=== PATIENT | male | born 1950 | race Caucasian/White ===

== ENCOUNTER 2016-08-25 03:13 | Emergency (ER) | payer OTHER, MEDICARE ==
[~2016-08-25 03:13] MED LIST: ASPI81TA85; ATEN25TA PO; COUM7.5T PO; HYDR25TAB PO; LOVA40TA PO; MAGN250T3 PO; OMEP20CA3 PO; PERC5TAB6 PO; TYLE325T5 PO
[2016-08-25] MEDS ORDERED: cloNIDine 0.2 MG TAB As Ordered ONE (03:51)
[2016-08-25 03:54] LABS: MEAN CORPUSCULAR HGB CONC 34.4 g/dl (32.0-36.5); MEAN CORPUSCULAR VOLUME 87.3 fl (80.0-96.0); RED CELL DISTRIBUTION WIDTH 12.6 % (11.5-14.5); WHITE BLOOD COUNT 5.8 K/mm3 (4.0-10.0)
[2016-08-25 04:03] LABS: INR 1.09
[2016-08-25 04:30] LABS: ANION GAP 8 MEQ/L (8-16); BLOOD UREA NITROGEN 25 MG/DL (7-18); CALCIUM LEVEL 8.8 MG/DL (8.8-10.2); CARBON DIOXIDE LEVEL 28 MEQ/L (21-32); CHLORIDE LEVEL 106 MEQ/L (98-107); CREATININE FOR GFR 1.37 MG/DL (0.70-1.30); GLOMERULAR FILTRATION RATE 55.3 (>49); GLUCOSE, FASTING 144 MG/DL (80-110); POTASSIUM SERUM 3.7 MEQ/L (3.5-5.1); SODIUM LEVEL 142 MEQ/L (136-145)
--- NOTE | 2016-08-25 05:22 | EDDOCDS ---
Nurse's Notes [facility] Name: Jeet aHll Age: 65 yrs Sex: Male : 1950 Arrival Date: 08/25/2016 Time: 03:13 Bed 12 Private MD: Diagnosis: Encounter for examination of blood pressure without abnormal findings;Patient's noncompliance with medical treatment and regimen Presentation: 08/25 03:16 Presenting complaint: Patient states: had blood pressure of 248/108 before leaving the nn1 house. Has had symptoms of indigestion for past few days. Suicide/Homicide risk assessment- the patient denies having any suicidal and/or homicidal ideations and does not present with any other emotional, behavioral or mental health complaints. Status: Patient is not a health services rn or dependent. Transition of care: patient was not received from another setting of care. 03:16 Acuity: ZELDA Level 3 nn1 03:16 Method Of Arrival: Walkin/Carried/Asstd nn1 05:20 Adult Sepsis Screening: The patient does not have new or worsening altered mentation. af2 Patient's respiratory rate is less than 22. Systolic blood pressure is greater than 100. Patient has a qSOFA score of 0- Negative Sepsis Screen. Triage Assessment: 03:24 General: Appears in no apparent distress, comfortable. Pain: Denies pain. The patient nn1 is triaged at the bedside. See Assessment in Nurses Notes section of ED record. Neurological: Level of Consciousness is awake, alert, obeys commands, Oriented to person, place, time. Respiratory: Airway is patent Respiratory effort is even, unlabored, Respiratory pattern is regular, symmetrical. Derm: Skin is pink, warm & dry. Historical: - Allergies: No known drug Allergies; - Home Meds: 1. omeprazole 20 mg Oral cpDR 1 cap once daily 2. atenolol 25 mg Oral tab 1 tab once daily 3. hydrochlorothiazide 25 mg Oral tab 1 tab once daily 4. saw palmetto 160 mg oral cap - PMHx: Hypertension; GERD; Alcoholism; Enlarged prostate; - PSHx: Shoulder Arthroplasty, Left; Shoulder Arthroplasty. Right; Hip Arthroplasty, Right; Knee surgery- Left; Appendectomy; - Social history: Smoking status: Patient states former smoker of tobacco. No barriers to communication noted, The patient speaks fluent Urdu, Speaks appropriately for age. - Family history: Not pertinent. - : The pt / caregiver states he / she is not on anticoagulants. Home medication list is obtained from the patient, pill bottles. - Exposure Risk Screening:: None identified. Screenin:29 Screening information is obtained from the patient. Fall risk: No risks identified. af2 Assistance ADL's: requires no assistance with activities of daily living. Abuse/DV Screen: The patient / caregiver reports he/she is: not in a situation that causes fear, pain or injury. Nutritional screening: No deficits noted. Advance Directives: Currently, there is no health care proxy. home support is adequate. Assessment: 04:30 General: Appears in no apparent distress, comfortable, Behavior is appropriate for age, af2 cooperative. Neurological: Level of Consciousness is awake, alert, obeys commands, Oriented to person, place, time. Cardiovascular: Heart tones S1 S2 present Rhythm is sinus rhythm No ectopy. Respiratory: Airway is patent Respiratory effort is even, unlabored, Breath sounds are clear bilaterally. Derm: Skin is normal. 05:18 General: Appears in no apparent distress, comfortable, Behavior is appropriate for age, af2 cooperative. Neurological: Level of Consciousness is awake, alert, obeys commands, Oriented to person, place, time. Respiratory: Airway is patent Respiratory effort is even, unlabored. Derm: Skin is normal. Vital Signs: 03:22 BP 214 / 94; Pulse 55; Resp 18; Temp 97; Pulse Ox 98% on R/A; Weight 116.12 kg; Height nn1 6 ft. 0 in. (182.88 cm); 04:11 BP 175 / 79 (auto/); af2 04:11 Pulse 50 MON; Resp 18 S; Pulse Ox 96% on R/A; af2 04:26 BP 147 / 65 (auto/); af2 04:26 Pulse 48 MON; Resp 18 S; Pulse Ox 94% on R/A; af2 05:19 BP 131 / 64; Pulse 48; Resp 18; Temp 97.0(TE); Pulse Ox 96% on R/A; af2 03:22 Body Mass Index 34.72 (116.12 kg, 182.88 cm) nn1 Vitals: 05:20 Log In Time: August 25, 2016 at 03:13. af2 ED Course: 03:14 Patient visited by Kym Jarvis. gjb 03:14 Patient moved to Waiting gjb 03:18 Triage Initiated nn1 03:25 Isha Porter RN is Primary Nurse. nn1 03:25 Morgan Thompson DO is Attending Physician. cs11 03:25 Patient visited by Morgan Thompson DO. cs11 03:25 Patient moved to 12 nn1 03:37 EKG done. (by ED staff). Reviewed by Morgan Thompsno DO. ls3 03:38 Patient visited by Gretchen Thompson PCA. ls3 03:50 Pt & Aptt Sent. af2 03:50 Cardiac Marker Panel Sent. af2 03:50 MED Profile Sent. af2 03:50 CBC Sent. af2 04:12 [facility] [place] Payment Agreement was scanned into F[employer] and attached to record. [facility] 04:19 Patient visited by Isha Porter RN. af2 04:29 The patient / caregiver is instructed regarding the plan of care and ED course. Patient af2 has correct armband on for positive identification. Placed in gown. child monitor on. Pulse ox on. NIBP on. 04:30 Patient visited by Isha Porter RN. af2 05:19 Inserted saline lock: 20 gauge in left antecubital area and blood collected. The af2 patient tolerated the procedure well. 05:19 Discontinued IV lock intact, bleeding controlled, pressure dressing applied, No af2 redness/swelling at site. No procedures done that require assistance. Administered Medications: 03:54 Drug: cloNIDine 0.2 mg [clonidine HCl 0.2 mg tablet (1 tabs)] Route: PO; af2 Order Results: Lab Order: CBC; SPEC'M 08/25/16 03:47 Test: WHITE BLOOD COUNT; Value: 5.8; Range: 4.0-10.0; Units: K/mm3; Status: F Test: RED BLOOD COUNT; Value: 4.91; Range: 4.30-6.10; Units: M/mm3; Status: F Test: HEMOGLOBIN; Value: 14.7; Range: 14.0-18.0; Units: g/dl; Status: F Test: HEMATOCRIT; Value: 42.9; Range: 42.0-52.0; Units: %; Status: F Test: MEAN CORPUSCULAR VOLUME; Value: 87.3; Range: 80.0-96.0; Units: fl; Status: F Test: MEAN CORPUSCULAR HEMOGLOBIN; Value: 30.0; Range: 27.0-33.0; Units: pg; Status: F Test: MEAN CORPUSCULAR HGB CONC; Value: 34.4; Range: 32.0-36.5; Units: g/dl; Status: F Test: RED CELL DISTRIBUTION WIDTH; Value: 12.6; Range: 11.5-14.5; Units: %; Status: F Test: PLATELET COUNT, AUTOMATED; Value: 168; Range: 150-450; Units: k/mm3; Status: F Lab Order: MED Profile; SPEC'M 08/25/16 03:47 Test: GLUCOSE, FASTING; Value: 144; Range: 80-110; Abnormal: Above high normal; Units: MG/DL; Status: F Test: BLOOD UREA NITROGEN; Value: 25; Range: 7-18; Abnormal: Above high normal; Units: MG/DL; Status: F Test: CREATININE FOR GFR; Value: 1.37; Range: 0.70-1.30; Abnormal: Above high normal; Units: MG/DL; Status: F Test: GLOMERULAR FILTRATION RATE; Value: 55.3; Range: >49; Status: F Test: SODIUM LEVEL; Value: 142; Range: 136-145; Units: MEQ/L; Status: F Test: POTASSIUM SERUM; Value: 3.7; Range: 3.5-5.1; Units: MEQ/L; Status: F Test: CHLORIDE LEVEL; Value: 106; Range: 98-107; Units: MEQ/L; Status: F Test: CARBON DIOXIDE LEVEL; Value: 28; Range: 21-32; Units: MEQ/L; Status: F Test: ANION GAP; Value: 8; Range: 8-16; Units: MEQ/L; Status: F Test: CALCIUM LEVEL; Value: 8.8; Range: 8.8-10.2; Units: MG/DL; Status: F Test Note: ; Units are mL/min/1.73 m2 Chronic Kidney Disease Staging per NKF: Stage I & II GFR >=60 Normal to Mildly Decreased Stage III GFR 30-59 Moderately Decreased Stage IV GFR 15-29 Severely Decreased Stage V GFR <15 Very Little GFR Left ESRD GFR <15 on NURSE SPECIAL Lab Order: Cardiac Marker Panel; SPEC'M 08/25/16 03:47 Test: CPK CREATINE PHOSPHOKINASE; Value: 289; Range: 39-308; Units: U/L; Status: F Test: CK-MB VALUE MASS; Value: 3.2; Range: 0.0-3.6; Units: NG/ML; Status: F Test: MB/CK RELATIVE INDEX; Value: 1.10; Range: < OR =4; Status: F Test: TROPONIN I; Value: < 0.02; Range: < 0.10; Units: NG/ML; Status: F Test Note: ; DIAGNOSIS CRITERIA MMB ng/ml Relative Index (RI) NON-AMI < or = 5 N/A MANNING ZONE > 5 < or = 4 AMI > 5 > 4 Lab Order: Pt & Aptt; SPEC'M 08/25/16 03:47 Test: PROTHROMBIN TIME; Value: 14.2; Range: 12.3-14.5; Units: SECONDS; Status: F Test: INR; Value: 1.09; Status: F Test: PARTIAL THROMBOPLASTIN TIME; Value: 31.5; Range: 26.6-37.1; Units: SECONDS; Status: F Test Note: ; THERAPUTIC HUMAN INR VALUES INDICATIONS NORMAL RANGES PROPHYLAXIS/TREATMENT OF: VENOUS THROMBOSIS 2.0-3.0 PULMONARY EMBOLISM 2.0-3.0 PREVENTION OF SYSTEMIC EMBOLISM FROM: TISSUE HEART VALVES 2.0-3.0 ACUTE MYOCARDIAL INFARCTION 2.0-3.0 VALVULAR HEART DISEASE 2.0-3.0 ATRIAL FIBRILLATION 2.0-3.0 MECHANICAL VALVES(HIGH RISK) 2.5-3.5 RECURRENT MYOCARDIAL INFARCTION 2.5-3.5 Outcome: 05:00 Discharge ordered by Provider. cs11 05:20 Discharge Assessment: Patient awake, alert and oriented x 3. No cognitive and/or af2 functional deficits noted. Patient verbalized understanding of disposition instructions. patient administered narcotics - no. The following High Risk Discharge criteria are identified: None. Discharged to home ambulatory. Condition: stable. Discharge instructions given to patient, Instructed on discharge instructions, follow up and referral plans. Demonstrated understanding of instructions, Pt was receptive of discharge instructions/ teaching. No special radiology studies were completed. Property :Personal belongings accompany Pt. 05:21 Patient left the ED. af2 Signatures: Morgan Thompson DO cs11 Gosia Hinson,Isha,RN RN af2 Joon Munoz RN RN nn1 Gretchen Thompson, WATER PLUMBER WATER PLUMBER ls3 Kym Jarvis MTDD
--- NOTE | 2016-08-25 05:22 | EDDOCDS ---
Physician Documentation [facility] Name: Jeet Hall Age: 65 yrs Sex: Male : 1950 Arrival Date: 08/25/2016 Time: 03:13 Bed 12 Private MD: Disposition: 08/25/16 05:00 Discharged to Home/Self Care. Impression: Encounter for examination of blood pressure without abnormal findings, Patient's noncompliance with medical treatment and regimen. - Condition is Stable. - Medication Reconciliation, Local Pharmacy Hours form. - Follow up: Private Physician; When: Call to arrange an appointment; Reason: Recheck today's complaints. - Problem is an ongoing problem. - Symptoms have improved. Historical: - Allergies: No known drug Allergies; - Home Meds: 1. omeprazole 20 mg Oral cpDR 1 cap once daily 2. atenolol 25 mg Oral tab 1 tab once daily 3. hydrochlorothiazide 25 mg Oral tab 1 tab once daily 4. saw palmetto 160 mg oral cap - PMHx: Hypertension; GERD; Alcoholism; Enlarged prostate; - PSHx: Shoulder Arthroplasty, Left; Shoulder Arthroplasty. Right; Hip Arthroplasty, Right; Knee surgery- Left; Appendectomy; - Social history: Smoking status: Patient states former smoker of tobacco. No barriers to communication noted, The patient speaks fluent Pashto, Speaks appropriately for age. - Family history: Not pertinent. - : The pt / caregiver states he / she is not on anticoagulants. Home medication list is obtained from the patient, pill bottles. - Exposure Risk Screening:: None identified. Vital Signs: 08/25 03:22 BP 214 / 94; Pulse 55; Resp 18; Temp 97; Pulse Ox 98% on R/A; Weight 116.12 kg / 256 nn1 lbs; Height 6 ft. 0 in. (182.88 cm); 04:11 BP 175 / 79 (auto/); af2 04:11 Pulse 50 MON; Resp 18 S; Pulse Ox 96% on R/A; af2 04:26 BP 147 / 65 (auto/); af2 04:26 Pulse 48 MON; Resp 18 S; Pulse Ox 94% on R/A; af2 05:19 BP 131 / 64; Pulse 48; Resp 18; Temp 97.0(TE); Pulse Ox 96% on R/A; af2 03:22 Body Mass Index 34.72 (116.12 kg, 182.88 cm) nn1 MDM: 03:30 ECG WITH READING ER PHYS+CARDIAG ordered. EDMS 03:40 cloNIDine 0.2 mg PO once ordered. cs11 03:41 CBC Ordered. EDMS 03:41 MED Profile Ordered. EDMS 03:41 Cardiac Marker Panel Ordered. EDMS 03:41 Pt & Aptt Ordered. EDMS 04:05 Financial registration complete. [facility] 04:12 [facility] Payment Agreement was scanned into [employer] and attached to record. [facility] 04:48 MED Profile Reviewed. cs11 04:48 CBC Reviewed. cs11 04:48 Cardiac Marker Panel Reviewed. cs11 04:48 Pt & Aptt Reviewed. cs11 Administered Medications: 03:54 Drug: cloNIDine 0.2 mg [clonidine HCl 0.2 mg tablet (1 tabs)] Route: PO; af2 Signatures: Dispatcher [employer] EDMS Morgan Thompson, DO cs11 Gosia Hinson [facility] Isha Porter RN RN af2 Joon Munoz RN RN nn1 The chart was reviewed and I authenticate all verbal orders and agree with the evaluation and treatment provided.Attachments: 04:12 [facility] Payment Agreement [facility] MTDD
--- NOTE | 2016-08-26 22:57 | ECGEPIP ---
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
--- NOTE | 2016-08-27 06:22 | EDDOCDS ---
Physician Documentation [facility] Name: Jeet Hall Age: 65 yrs Sex: Male : 1950 Arrival Date: 08/25/2016 Time: 03:13 Bed 12 Private MD: Disposition: 08/25/16 05:00 Discharged to Home/Self Care. Impression: Encounter for examination of blood pressure without abnormal findings, Patient's noncompliance with medical treatment and regimen. - Condition is Stable. - Medication Reconciliation, Local Pharmacy Hours form. - Follow up: Private Physician; When: Call to arrange an appointment; Reason: Recheck today's complaints. - Problem is an ongoing problem. - Symptoms have improved. Historical: - Allergies: No known drug Allergies; - Home Meds: 1. omeprazole 20 mg Oral cpDR 1 cap once daily 2. atenolol 25 mg Oral tab 1 tab once daily 3. hydrochlorothiazide 25 mg Oral tab 1 tab once daily 4. saw palmetto 160 mg oral cap - PMHx: Hypertension; GERD; Alcoholism; Enlarged prostate; - PSHx: Shoulder Arthroplasty, Left; Shoulder Arthroplasty. Right; Hip Arthroplasty, Right; Knee surgery- Left; Appendectomy; - Social history: Smoking status: Patient states former smoker of tobacco. No barriers to communication noted, The patient speaks fluent Urdu, Speaks appropriately for age. - Family history: Not pertinent. - : The pt / caregiver states he / she is not on anticoagulants. Home medication list is obtained from the patient, pill bottles. - Exposure Risk Screening:: None identified. Vital Signs: 08/25 03:22 BP 214 / 94; Pulse 55; Resp 18; Temp 97; Pulse Ox 98% on R/A; Weight 116.12 kg / 256 nn1 lbs; Height 6 ft. 0 in. (182.88 cm); 04:11 BP 175 / 79 (auto/); af2 04:11 Pulse 50 MON; Resp 18 S; Pulse Ox 96% on R/A; af2 04:26 BP 147 / 65 (auto/); af2 04:26 Pulse 48 MON; Resp 18 S; Pulse Ox 94% on R/A; af2 05:19 BP 131 / 64; Pulse 48; Resp 18; Temp 97.0(TE); Pulse Ox 96% on R/A; af2 03:22 Body Mass Index 34.72 (116.12 kg, 182.88 cm) nn1 MDM: 03:30 ECG WITH READING ER PHYS+CARDIAG ordered. EDMS 03:40 cloNIDine 0.2 mg PO once ordered. cs11 03:41 CBC Ordered. EDMS 03:41 MED Profile Ordered. EDMS 03:41 Cardiac Marker Panel Ordered. EDMS 03:41 Pt & Aptt Ordered. EDMS 04:05 Financial registration complete. [facility] 04:12 [facility] Payment Agreement was scanned into [employer] and attached to record. [facility] 04:48 MED Profile Reviewed. cs11 04:48 CBC Reviewed. cs11 04:48 Cardiac Marker Panel Reviewed. cs11 04:48 Pt & Aptt Reviewed. [facility] 08/26 09:32 T-Sheet-- Draft Copy was scanned into [employer] and attached to record. gb 09:32 ECG/EKG was scanned into [employer] and attached to record. gb Administered Medications: 08/25 03:54 Drug: cloNIDine 0.2 mg [clonidine HCl 0.2 mg tablet (1 tabs)] Route: PO; af2 Signatures: Dispatcher [employer] EDMS Gifty Rivera, Reg Reg gb Morgan Thompson, DO DO cs11 Gosia Hinson [facility] Isha PorterRN RN af2 Joon MunozRN RN nn1 The chart was reviewed and I authenticate all verbal orders and agree with the evaluation and treatment provided.Attachments: 04:12 [facility] Payment Agreement [facility] 08/26 09:32 T-Sheet-- Draft Copy gb 09:32 ECG/EKG Chart Complete MTDD
--- NOTE | 2016-08-27 06:22 | EDDOCDS ---
Nurse's Notes [facility] Name: Jeet Mendoza Age: 65 yrs Sex: Male : 1950 Arrival Date: 08/25/2016 Time: 03:13 Bed 12 Private MD: Diagnosis: Encounter for examination of blood pressure without abnormal findings;Patient's noncompliance with medical treatment and regimen Presentation: 08/25 03:16 Presenting complaint: Patient states: had blood pressure of 248/108 before leaving the nn1 house. Has had symptoms of indigestion for past few days. Suicide/Homicide risk assessment- the patient denies having any suicidal and/or homicidal ideations and does not present with any other emotional, behavioral or mental health complaints. 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 Transition of care: patient was not received from another setting of care. 03:16 Acuity: ZELDA Level 3 nn1 03:16 Method Of Arrival: Walkin/Carried/Asstd nn1 05:20 Adult Sepsis Screening: The patient does not have new or worsening altered mentation. af2 Patient's respiratory rate is less than 22. Systolic blood pressure is greater than 100. Patient has a qSOFA score of 0- Negative Sepsis Screen. Triage Assessment: 03:24 General: Appears in no apparent distress, comfortable. Pain: Denies pain. The patient nn1 is triaged at the bedside. See Assessment in Nurses Notes section of ED record. Neurological: Level of Consciousness is awake, alert, obeys commands, Oriented to person, place, time. Respiratory: Airway is patent Respiratory effort is even, unlabored, Respiratory pattern is regular, symmetrical. Derm: Skin is pink, warm & dry. Historical: - Allergies: No known drug Allergies; - Home Meds: 1. omeprazole 20 mg Oral cpDR 1 cap once daily 2. atenolol 25 mg Oral tab 1 tab once daily 3. hydrochlorothiazide 25 mg Oral tab 1 tab once daily 4. saw palmetto 160 mg oral cap - PMHx: Hypertension; GERD; Alcoholism; Enlarged prostate; - PSHx: Shoulder Arthroplasty, Left; Shoulder Arthroplasty. Right; Hip Arthroplasty, Right; Knee surgery- Left; Appendectomy; - Social history: Smoking status: Patient states former smoker of tobacco. No barriers to communication noted, The patient speaks fluent Romanian, Speaks appropriately for age. - Family history: Not pertinent. - : The pt / caregiver states he / she is not on anticoagulants. Home medication list is obtained from the patient, pill bottles. - Exposure Risk Screening:: None identified. Screenin:29 Screening information is obtained from the patient. Fall risk: No risks identified. af2 Assistance ADL's: requires no assistance with activities of daily living. Abuse/DV Screen: The patient / caregiver reports he/she is: not in a situation that causes fear, pain or injury. Nutritional screening: No deficits noted. Advance Directives: Currently, there is no health care proxy. home support is adequate. Assessment: 04:30 General: Appears in no apparent distress, comfortable, Behavior is appropriate for age, af2 cooperative. Neurological: Level of Consciousness is awake, alert, obeys commands, Oriented to person, place, time. Cardiovascular: Heart tones S1 S2 present Rhythm is sinus rhythm No ectopy. Respiratory: Airway is patent Respiratory effort is even, unlabored, Breath sounds are clear bilaterally. Derm: Skin is normal. 05:18 General: Appears in no apparent distress, comfortable, Behavior is appropriate for age, af2 cooperative. Neurological: Level of Consciousness is awake, alert, obeys commands, Oriented to person, place, time. Respiratory: Airway is patent Respiratory effort is even, unlabored. Derm: Skin is normal. Vital Signs: 03:22 BP 214 / 94; Pulse 55; Resp 18; Temp 97; Pulse Ox 98% on R/A; Weight 116.12 kg; Height nn1 6 ft. 0 in. (182.88 cm); 04:11 BP 175 / 79 (auto/); af2 04:11 Pulse 50 MON; Resp 18 S; Pulse Ox 96% on R/A; af2 04:26 BP 147 / 65 (auto/); af2 04:26 Pulse 48 MON; Resp 18 S; Pulse Ox 94% on R/A; af2 05:19 BP 131 / 64; Pulse 48; Resp 18; Temp 97.0(TE); Pulse Ox 96% on R/A; af2 03:22 Body Mass Index 34.72 (116.12 kg, 182.88 cm) nn1 Vitals: 05:20 Log In Time: August 25, 2016 at 03:13. af2 ED Course: 03:14 Patient visited by Kym Jarvis. gjb 03:14 Patient moved to Waiting gjb 03:18 Triage Initiated nn1 03:25 Isha Porter RN is Primary Nurse. nn1 03:25 Morgan Paniagua DO is Attending Physician. cs11 03:25 Patient visited by Morgan Paniagua DO. cs11 03:25 Patient moved to 12 nn1 03:37 EKG done. (by ED staff). Reviewed by Morgan Paniagua DO. ls3 03:38 Patient visited by Gretchen Paniagua PCA. ls3 03:50 Pt & Aptt Sent. af2 03:50 Cardiac Marker Panel Sent. af2 03:50 MED Profile Sent. af2 03:50 CBC Sent. af2 04:12 [facility], [facility]1983 Payment Agreement was scanned into [employer] and attached to record. h 04:19 Patient visited by Isha Porter RN. af2 04:29 The patient / caregiver is instructed regarding the plan of care and ED course. Patient af2 has correct armband on for positive identification. Placed in gown. washer carcass on. Pulse ox on. NIBP on. 04:30 Patient visited by Isha Porter RN. af2 05:19 Inserted saline lock: 20 gauge in left antecubital area and blood collected. The af2 patient tolerated the procedure well. 05:19 Discontinued IV lock intact, bleeding controlled, pressure dressing applied, No af2 redness/swelling at site. No procedures done that require assistance. 08/26 09:32 T-Sheet-- Draft Copy was scanned into [employer] and attached to record. gb 09:32 ECG/EKG was scanned into [employer] and attached to record. gb 23:42 EKG-ADULT Returned. EDMS Administered Medications: 08/25 03:54 Drug: cloNIDine 0.2 mg [clonidine HCl 0.2 mg tablet (1 tabs)] Route: PO; af2 Order Results: Lab Order: CBC; SPEC'M 08/25/16 03:47 Test: WHITE BLOOD COUNT; Value: 5.8; Range: 4.0-10.0; Units: K/mm3; Status: F Test: RED BLOOD COUNT; Value: 4.91; Range: 4.30-6.10; Units: M/mm3; Status: F Test: HEMOGLOBIN; Value: 14.7; Range: 14.0-18.0; Units: g/dl; Status: F Test: HEMATOCRIT; Value: 42.9; Range: 42.0-52.0; Units: %; Status: F Test: MEAN CORPUSCULAR VOLUME; Value: 87.3; Range: 80.0-96.0; Units: fl; Status: F Test: MEAN CORPUSCULAR HEMOGLOBIN; Value: 30.0; Range: 27.0-33.0; Units: pg; Status: F Test: MEAN CORPUSCULAR HGB CONC; Value: 34.4; Range: 32.0-36.5; Units: g/dl; Status: F Test: RED CELL DISTRIBUTION WIDTH; Value: 12.6; Range: 11.5-14.5; Units: %; Status: F Test: PLATELET COUNT, AUTOMATED; Value: 168; Range: 150-450; Units: k/mm3; Status: F Lab Order: MED Profile; [facility]' 08/25/16 03:47 Test: GLUCOSE, FASTING; Value: 144; Range: 80-110; Abnormal: Above high normal; Units: MG/DL; Status: F Test: BLOOD UREA NITROGEN; Value: 25; Range: 7-18; Abnormal: Above high normal; Units: MG/DL; Status: F Test: CREATININE FOR GFR; Value: 1.37; Range: 0.70-1.30; Abnormal: Above high normal; Units: MG/DL; Status: F Test: GLOMERULAR FILTRATION RATE; Value: 55.3; Range: >49; Status: F Test: SODIUM LEVEL; Value: 142; Range: 136-145; Units: MEQ/L; Status: F Test: POTASSIUM SERUM; Value: 3.7; Range: 3.5-5.1; Units: MEQ/L; Status: F Test: CHLORIDE LEVEL; Value: 106; Range: 98-107; Units: MEQ/L; Status: F Test: CARBON DIOXIDE LEVEL; Value: 28; Range: 21-32; Units: MEQ/L; Status: F Test: ANION GAP; Value: 8; Range: 8-16; Units: MEQ/L; Status: F Test: CALCIUM LEVEL; Value: 8.8; Range: 8.8-10.2; Units: MG/DL; Status: F Test Note: ; Units are mL/min/1.73 m2 Chronic Kidney Disease Staging per NKF: Stage I & II GFR >=60 Normal to Mildly Decreased Stage III GFR 30-59 Moderately Decreased Stage IV GFR 15-29 Severely Decreased Stage V GFR <15 Very Little GFR Left ESRD GFR <15 on FINAL ASSEMBLER BOAT Lab Order: Cardiac Marker Panel; SPEC'M 08/25/16 03:47 Test: CPK CREATINE PHOSPHOKINASE; Value: 289; Range: 39-308; Units: U/L; Status: F Test: CK-MB VALUE MASS; Value: 3.2; Range: 0.0-3.6; Units: NG/ML; Status: F Test: MB/CK RELATIVE INDEX; Value: 1.10; Range: < OR =4; Status: F Test: TROPONIN I; Value: < 0.02; Range: < 0.10; Units: NG/ML; Status: F Test Note: ; DIAGNOSIS CRITERIA MMB ng/ml Relative Index (RI) NON-AMI < or = 5 N/A MANNING ZONE > 5 < or = 4 AMI > 5 > 4 Lab Order: Pt & Aptt; SPEC'M 08/25/16 03:47 Test: PROTHROMBIN TIME; Value: 14.2; Range: 12.3-14.5; Units: SECONDS; Status: F Test: INR; Value: 1.09; Status: F Test: PARTIAL THROMBOPLASTIN TIME; Value: 31.5; Range: 26.6-37.1; Units: SECONDS; Status: F Test Note: ; THERAPUTIC HUMAN INR VALUES INDICATIONS NORMAL RANGES PROPHYLAXIS/TREATMENT OF: VENOUS THROMBOSIS 2.0-3.0 PULMONARY EMBOLISM 2.0-3.0 PREVENTION OF SYSTEMIC EMBOLISM FROM: TISSUE HEART VALVES 2.0-3.0 ACUTE MYOCARDIAL INFARCTION 2.0-3.0 VALVULAR HEART DISEASE 2.0-3.0 ATRIAL FIBRILLATION 2.0-3.0 MECHANICAL VALVES(HIGH RISK) 2.5-3.5 RECURRENT MYOCARDIAL INFARCTION 2.5-3.5 Radiology Order: EKG-ADULT Test: EKG-ADULT REASON FOR EXAMINATION: htn; Stationary ECG Study; [facility] - ED; ; Test Date: 2016-08-25; Pat Name: JEET MENDOZA Department:; Room: -; 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 cs11 05:20 Discharge Assessment: Patient awake, alert and oriented x 3. No cognitive and/or af2 functional deficits noted. Patient verbalized understanding of disposition instructions. patient administered narcotics - no. The following High Risk Discharge criteria are identified: None. Discharged to home ambulatory. Condition: stable. Discharge instructions given to patient, Instructed on discharge instructions, follow up and referral plans. Demonstrated understanding of instructions, Pt was receptive of discharge instructions/ teaching. No special radiology studies were completed. Property :Personal belongings accompany Pt. 05:21 Patient left the ED. af2 Signatures: Dispatcher [employer] EDMS Gifty Rivera, Reg Reg gb Morgan Paniagua, DO cs11 Gosia Hinson AmberRN RN af2 Joon Munoz RN RN nn1 Gretchen Paniagua, SEWER PIPE SORTER SEWER PIPE SORTER ls3 Kym Jarvis Chart Complete MTDD
--- NOTE | 2016-08-27 06:22 | EDDOCDS ---
Physician Documentation [facility] Name: Jeet Hall Age: 65 yrs Sex: Male : 1950 Arrival Date: 08/25/2016 Time: 03:13 Bed 12 Private MD: Disposition: 08/25/16 05:00 Discharged to Home/Self Care. Impression: Encounter for examination of blood pressure without abnormal findings, Patient's noncompliance with medical treatment and regimen. - Condition is Stable. - Medication Reconciliation, Local Pharmacy Hours form. - Follow up: Private Physician; When: Call to arrange an appointment; Reason: Recheck today's complaints. - Problem is an ongoing problem. - Symptoms have improved. Historical: - Allergies: No known drug Allergies; - Home Meds: 1. omeprazole 20 mg Oral cpDR 1 cap once daily 2. atenolol 25 mg Oral tab 1 tab once daily 3. hydrochlorothiazide 25 mg Oral tab 1 tab once daily 4. saw palmetto 160 mg oral cap - PMHx: Hypertension; GERD; Alcoholism; Enlarged prostate; - PSHx: Shoulder Arthroplasty, Left; Shoulder Arthroplasty. Right; Hip Arthroplasty, Right; Knee surgery- Left; Appendectomy; - Social history: Smoking status: Patient states former smoker of tobacco. No barriers to communication noted, The patient speaks fluent Romanian, Speaks appropriately for age. - Family history: Not pertinent. - : The pt / caregiver states he / she is not on anticoagulants. Home medication list is obtained from the patient, pill bottles. - Exposure Risk Screening:: None identified. Vital Signs: 08/25 03:22 BP 214 / 94; Pulse 55; Resp 18; Temp 97; Pulse Ox 98% on R/A; Weight 116.12 kg / 256 nn1 lbs; Height 6 ft. 0 in. (182.88 cm); 04:11 BP 175 / 79 (auto/); af2 04:11 Pulse 50 MON; Resp 18 S; Pulse Ox 96% on R/A; af2 04:26 BP 147 / 65 (auto/); af2 04:26 Pulse 48 MON; Resp 18 S; Pulse Ox 94% on R/A; af2 05:19 BP 131 / 64; Pulse 48; Resp 18; Temp 97.0(TE); Pulse Ox 96% on R/A; af2 03:22 Body Mass Index 34.72 (116.12 kg, 182.88 cm) nn1 MDM: 03:30 ECG WITH READING ER PHYS+CARDIAG ordered. EDMS 03:40 cloNIDine 0.2 mg PO once ordered. cs11 03:41 CBC Ordered. EDMS 03:41 MED Profile Ordered. EDMS 03:41 Cardiac Marker Panel Ordered. EDMS 03:41 Pt & Aptt Ordered. EDMS 04:05 Financial registration complete. [facility] 04:12 [facility] Payment Agreement was scanned into [employer] and attached to record. [facility] 04:48 MED Profile Reviewed. cs11 04:48 CBC Reviewed. cs11 04:48 Cardiac Marker Panel Reviewed. cs11 04:48 Pt & Aptt Reviewed. [facility] 08/26 09:32 T-Sheet-- Draft Copy was scanned into [employer] and attached to record. gb 09:32 ECG/EKG was scanned into [employer] and attached to record. gb Administered Medications: 08/25 03:54 Drug: cloNIDine 0.2 mg [clonidine HCl 0.2 mg tablet (1 tabs)] Route: PO; af2 Signatures: Dispatcher [employer] EDMS Gifty Rivera, Reg Reg gb Morgan Thompson, DO DO cs11 Gosia Hinson [facility] Isha PorterRN RN af2 Joon MunozRN RN nn1 The chart was reviewed and I authenticate all verbal orders and agree with the evaluation and treatment provided.Attachments: 04:12 [facility] Payment Agreement [facility] 08/26 09:32 T-Sheet-- Draft Copy gb 09:32 ECG/EKG Chart Complete MTDD
== END 2016-08-25 05:21 | disposition home or self-care (01) ==
LOC: M ED 03:13
DX: I10 Essential (primary) hypertension (principal); Z91.14 Patient's other noncompliance with medication regimen; R94.31 Abnormal electrocardiogram [ECG] [EKG]; K21.9 Gastro-esophageal reflux disease without esophagitis; F10.20 Alcohol dependence, uncomplicated; N40.0 Benign prostatic hyperplasia without lower urinary tract symptoms; Z96.611 Presence of right artificial shoulder joint; Z96.612 Presence of left artificial shoulder joint; Z96.641 Presence of right artificial hip joint; Z87.891 Personal history of nicotine dependence; Z79.899 Other long term (current) drug therapy

== ENCOUNTER → 2017-03-23 | Outpatient (CLI) | payer OTHER ==
[~2017-03-23] MED LIST changes: +PERC5TAB12 PO; -PERC5TAB6 PO
--- NOTE | 2017-03-23 11:17 | REP ---
REASON: Contusion. COMPARISON: None. There is moderate to severe asymmetric joint space narrowing with osteophytosis involving the 1st metatarsophalangeal joint. There is no evidence of an acute fracture. IMPRESSION: Chronic changes as described above. Signed by Johan Culver DO 03/23/2017 11:30 A
== END ==
LOC: M ADAMS 10:11
PROVIDERS: ATTEND Physician Assistant Medical
DX: S90.32XA Contusion of left foot, initial encounter (principal); M19.072 Primary osteoarthritis, left ankle and foot; X58.XXXA Exposure to other specified factors, initial encounter; Y92.89 Other specified places as the place of occurrence of the external cause; Y93.89 Activity, other specified; Y99.8 Other external cause status

== ENCOUNTER → 2017-11-04 | Outpatient (CLI) | payer OTHER | LOC: M SLEEP 20:00 | DX: G47.33 Obstructive sleep apnea (adult) (pediatric) (principal) | CPT/HCPCS: 95810 ==

== ENCOUNTER → 2017-11-25 | Outpatient (CLI) | payer OTHER | LOC: M SLEEP 20:00 | DX: G47.33 Obstructive sleep apnea (adult) (pediatric) (principal) | CPT/HCPCS: 95811 ==

== ENCOUNTER 2018-05-15 12:25 | Outpatient (RCR) | payer OTHER | END 2018-05-19 | LOC: M CR 12:25 | DX: Z95.3 Presence of xenogenic heart valve (principal); I35.0 Nonrheumatic aortic (valve) stenosis; Z95.1 Presence of aortocoronary bypass graft | CPT/HCPCS: 93798 ==

== ENCOUNTER 2018-05-22 13:57 | Outpatient (RCR) | payer OTHER | END 2018-06-19 | LOC: M CR 13:57 | DX: Z95.3 Presence of xenogenic heart valve (principal); Z95.1 Presence of aortocoronary bypass graft; I35.0 Nonrheumatic aortic (valve) stenosis | CPT/HCPCS: 93798 ==

== ENCOUNTER 2018-06-21 10:46 | Outpatient (RCR) | payer OTHER | END 2018-07-19 | LOC: M CR 10:46 | DX: Z95.3 Presence of xenogenic heart valve (principal); Z95.1 Presence of aortocoronary bypass graft; I35.0 Nonrheumatic aortic (valve) stenosis ==

== ENCOUNTER 2018-08-07 10:59 | Outpatient (RCR) | payer OTHER ==
--- NOTE | 2018-08-07 12:47 | CARECAPL ---
Assessment Account #s: Re-Assessment II (discharge assessment) General Diagnoses: CABG, AVR Date of event: May 15, 2018 Physician: Los Ryan MD Allergies: Coded Allergies: No Known Allergies (Verified , 03/24/05) Date Entered Program: Jun 05, 2018 Risk strat for cardiac event: Low Exercise Date: Aug 07, 2018 Assessment: Followup/Discharge Exercise Prescription Modalities initiated: Treadmill, Nustep, Arm Aerometer, Dumbells, Recumbent Bike Frequency: 3 Duration (Minutes) 30-60 minutes total exercise a day. 10-15 work intervals in minutes. rest intervals in minutes. Functional Capacity Goal Sustained Metabolic Equivalent of a task (MET) goal of 4.0-5.0 for 15-20 minutes. Intensity: 3-Moderate Progression (METS) Increase by: METS every: sessions Resistance Training: No Hypertension: Yes Hypertension controlled with: Medication Resting 136/80 Peak Exercise BP 180/90 Meds see below Medications Scheduled Atenolol (Atenolol), 25 MG PO DAILY, (Reported) Hydrochlorothiazide (Hydrochlorothiazide), 25 MG PO DAILY, (Reported) Lovastatin (Lovastatin), 40 MG PO DAILY, (Reported) Omeprazole (Omeprazole), 20 MG PO DAILY, (Reported) Scheduled PRN Acetaminophen (Tylenol), 650 MG PO Q4HP PRN for TEMP > 100, (Reported) Miscellaneous Medications Aspirin (Aspir-81), (Reported) Education Goals Met: Yes Target Goals Individual exercise Rx (1) BP 140/90 or 130/80 if DM or CKD (1) Aerobic active 30+min 5 days per week (1) Nutrition Date: Aug 07, 2018 Assessment: Followup/Discharge Lipid- med/supplement lovastatin Med Change: No Diabetes Diabetes: Yes Fasting Blood Sugar: 132 Monitor Blood Sugar at home: Yes Frequency q3d Medication Change: No Current Weight (pounds): 268 Intervention Cinema Operator Consult: Yes Nurse/patient discussion: Yes Education S&S hypo/hyper glycemia, Relate Diabetes in CAD, Eating Healthy Education Goals Met: No Target goal LDL-C<100 if triglycerides are >200 Non-HDL-C should be <130 (1) LDL-C<70 for high risk patients (4) HbA1c<7% (1) BMI<25 Waist cir<40in M/<35in F (1) Education Date: Aug 07, 2018 Assessment: Followup/Discharge Knowledge Test Score: 10 Family Support: Yes Tobacco use: No Intervention Individual education and couns: Yes Education class schedule given: Yes Attended education classes: Yes Education: CAD, Risk factors, med compliance, cardiac A&P, Angina S/S, Sexuality Education Goals Met: Yes Target Goals Complete cessation of tobacco use (1). Psychosocial Date: Aug 07, 2018 Assessment: Followup/Discharge Psych Test (Initial/Discharge) Tool Used: CESD Score: 0 Intervention Physician Consult: No Physician Referral: Yes Med Change: No Stress Management Class: Yes Uses Stress Management Skills: Yes Education Education: Coping Techniques Education Goals Met: Yes Target Goal Assess presence or absence of depression using a valid screening tool (1). Maximize coping skills (2). Positive support system (2). Patient/Program Goal Preventative Medication: Yes Aspirin, Yes Beta blockade, Yes Statin/OTR lipid Lowering Provider Assessment Session Number: 17 Provider Assessment: No changes (discharge assessment) Renee Solis RN Aug 07, 2018 12:47
== END 2018-08-19 ==
LOC: M CR 10:59
PROVIDERS: ATTEND Internal Medicine Cardiovascular Disease
DX: I35.0 Nonrheumatic aortic (valve) stenosis (principal); Z95.3 Presence of xenogenic heart valve; Z95.1 Presence of aortocoronary bypass graft

== ENCOUNTER → 2020-11-03 | Outpatient (CLI) | payer OTHER ==
[~2020-11-03] MED LIST changes: -ASPI81TA85; +ASPI81TA86; -COUM7.5T PO; +COUM7.5T6 PO; +HYDR-2541 PO; -HYDR25TAB PO; +OMEP1CAP73 PO; -OMEP20CA3 PO
--- NOTE | 2020-11-05 14:18 | ECHO ---
DATE OF PROCEDURE: 11/03/2020 Age: 70 Gender: Male REFERRING PHYSICIAN: MAHENDRA Hillman PATIENT LOCATION: Outpatient. REASON FOR STUDY: Shortness of breath. 2D MEASUREMENTS: IVS 1.2 cm LV 5.0 cm LVPW 1.2 cm LA 4.5 cm Aorta 2.8 cm RV 3.3 cm IVC 2.0 cm DOPPLER MEASUREMENT Peak velocity across the aortic valve 2.7 m/s Peak velocity across the LVOT 1.5 m/s Peak gradient across the aortic valve 30 mmHg Mean gradient across the aortic valve 13 mmHg Mitral E 0.8 Mitral A 1.2 with a ratio of 0.7 2D COMMENTS: 1. Normal left ventricular size and systolic function with an estimated left ventricular systolic function of 65% to 70%. Subjectively there is mild concentric left ventricular hypertrophy. 2. Mildly enlarged left atrium. Normal right atrium and right ventricle. 3. The atrial septum appeared to be normal without evidence of defect or shunt. 4. Normal aortic root. 5. No pericardial effusion seen. 6. Mildly to moderately calcified aortic valve with restricted leaflet motion. Mildly calcified mitral annulus with normal anterior mitral valve leaflet motion. Normal tricuspid valve. The pulmonic valve and proximal pulmonary artery branches also appear to be normal. The inferior vena cava was mildly dilated, central venous pressure might be elevated. Doppler detects trace mitral regurgitation. There was a peak velocity of 4 msec across the LVOT associated with a peak gradient of 64 mmHg consistent with hypertrophic obstructive cardiomyopathy. Upon review, the peak velocity may be at the level of the mid left ventricle. IMPRESSION: 1. Normal global left ventricular systolic function with concentric left ventricular hypertrophy. There are some features of left ventricular diastolic dysfunction manifested by abnormal relaxation. 2. Aortic valve sclerosis with mild aortic stenosis, but no aortic regurgitation. 3. Mitral annular calcification with a mildly enlarged left atrium and trace mitral regurgitation. 4. There are findings consistent with hypertrophic obstructive cardiomyopathy with a peak velocity of 4.0 m/s associated with a peak gradient of 64 mmHg. MTDD
== END ==
LOC: M CARPUL 08:38
PROVIDERS: ATTEND Nurse Practitioner Family
DX: R06.02 Shortness of breath (principal); Z95.2 Presence of prosthetic heart valve

== ENCOUNTER → 2020-12-09 | Outpatient (CLI) | payer OTHER ==
--- NOTE | 2020-12-09 08:27 | REP ---
INDICATION: EPIGASTRIC PAIN. COMPARISON: None. TECHNIQUE: Right upper quadrant sonography. FINDINGS: Scanning through the right upper quadrant of the abdomen demonstrates a normal sized, thin-walled gallbladder without evidence of stone or polyp. Common bile duct is normal measuring 4.3 cm in greatest diameter. No focal liver lesion is seen. Liver size is normal. No pancreatic abnormality is observed. No right renal abnormality is seen. There is no evidence of ascites. The right kidney measures 10.7 x 6.9 x 5.5 cm. IMPRESSION: Negative right upper quadrant sonography. <Electronically signed by Rikki Vargas > 12/09/20 [id number]
== END ==
LOC: M RAD 06:53
PROVIDERS: ATTEND Family Medicine
DX: R10.13 Epigastric pain (principal)

== ENCOUNTER → 2021-01-21 | Outpatient (CLI) | payer OTHER ==
[~2021-01-21] MED LIST changes: +E-Z-GAS II EFFERVESCENT PACKET (SODIUM BICARB./CITRIC ACID/SIMETHICONE) As Ordered ONE; +E-Z-HD 98% w/w 340GM SUSP BTL As Ordered ONE; +E-Z-PAQUE 96% w/w SUSP 176GM BTL As Ordered ONE
--- NOTE | 2021-01-21 15:45 | REP ---
INDICATION: GERD, EPIGASTRIC PAIN. COMPARISON: Upper GI dated 09/14/2016 TECHNIQUE: This procedure was performed by Kerri Delaney [facility], under the direct supervision of Dr. Ross. Images were reviewed with Dr. Ross prior to dictation. Liquid barium and gas producing crystals were given in the erect position, as well as liquid barium in the prone oblique position in order to perform a double contrast upper GI examination. FINDINGS: The administrative underwriter film shows no organomegaly or pathological masses. The intestinal gas pattern is unremarkable. There are surgical rima in the right lower quadrant from a previous appendectomy. The oral and pharyngeal stages of deglutition were unremarkable. Esophageal transport is prompt and efficient and there is no evidence of esophagitis, stricture, or mucosal ring. There is no evidence of a hiatal hernia. There was no gastroesophageal reflux noted . The stomach romo are normally outlined. The rugal folds are smooth and regular. There is no gastritis, neoplasm, or ulcerative disease. The duodenal romo are normally outlined. The mucosal folds are smooth and regular. There is no duodenitis, peptic ulcer disease or neoplasm. The visualized portion of the proximal small bowel appears normal in course and caliber. IMPRESSION: Unremarkable upper GI exam. 0.2 minutes of fluoroscopy time was utilized for this procedure. Some fluoroscopic images are performed with last image hold technology. These images require no additional radiation. <Electronically signed by Kerri Delaney > 01/21/21 [id number] <Electronically signed by Fady Ross > 01/21/21 [id number]
== END ==
LOC: M RAD 08:00
PROVIDERS: ATTEND Physician Assistant Medical
DX: K21.9 Gastro-esophageal reflux disease without esophagitis (principal); R10.13 Epigastric pain

== ENCOUNTER → 2021-12-01 | Outpatient (CLI) | payer OTHER ==
[~2021-12-01] MED LIST changes: -E-Z-GAS II EFFERVESCENT PACKET (SODIUM BICARB./CITRIC ACID/SIMETHICONE) As Ordered ONE; -E-Z-HD 98% w/w 340GM SUSP BTL As Ordered ONE; -E-Z-PAQUE 96% w/w SUSP 176GM BTL As Ordered ONE
== END ==
LOC: M LABSMTC 09:39
PROVIDERS: ATTEND Internal Medicine Cardiovascular Disease
DX: Z20.822 Contact with and (suspected) exposure to COVID-19 (principal)

== ENCOUNTER → 2022-06-05 | Outpatient (CLI) | payer OTHER | LOC: M RAD 11:35 | PROVIDERS: ATTEND Physician Assistant | DX: R06.00 Dyspnea, unspecified (principal) ==

== ENCOUNTER 2023-01-02 10:35 | Inpatient (IN) | payer MEDICARE, OTHER ==
[~2023-01-02] VITALS: Ht 180.3 cm; Wt 107.7 kg
[2023-01-02 11:28] LABS: BASO % 0.2 % (0.0-1.0); EOS # 0.1 10^3/uL (0.0-0.5); EOS % 0.9 % (0.0-3.0); HEMATOCRIT 44.8 % (42.0-52.0); HEMOGLOBIN 15.1 g/dl (13.5-17.5); LYMPH # 2.3 10^3/uL (1.5-5.0); LYMPH % 34.7 % (24.0-44.0); MEAN CORPUSCULAR HEMOGLOBIN 29.9 pg (27.0-33.0); MEAN CORPUSCULAR HGB CONC 33.7 g/dl (32.0-36.5); MEAN CORPUSCULAR VOLUME 88.7 fl (80.0-96.0); MONO # 0.6 10^3/uL (0.0-0.8); MONO % 9.2 % (2.0-8.0); NEUTROPHILS # 3.6 10^3/uL (1.5-8.5); NEUTROPHILS % 54.8 % (36.0-66.0); PLATELET COUNT, AUTOMATED 157 10^3/uL (150-450); RED BLOOD COUNT 5.05 10^6/uL (4.30-6.10); WHITE BLOOD COUNT 6.6 10^3/uL (4.0-10.0)
[2023-01-02 11:55] LABS: ALBUMIN 3.7 G/DL (3.2-5.2); BILIRUBIN,DIRECT 0.3 MG/DL (<0.4); BILIRUBIN,TOTAL 1.3 MG/DL (0.3-1.2); CALCIUM LEVEL 8.9 MG/DL (8.3-10.6); CREATININE FOR GFR 1.3 MG/DL (0.70-1.30); GLOMERULAR FILTRATION RATE 57.6 (>42); POTASSIUM SERUM 4.4 MMOL/L (3.5-5.1); THYROID STIMULATING HORMONE 1.937 uIU/ML (0.55-4.78); TOTAL PROTEIN 6.7 G/DL (5.7-8.2)
[2023-01-02] MEDS ORDERED: NS 500 ML IV ONE (12:20)
[2023-01-02] MEDS ORDERED: FURO40TA2 PO (13:31)
[2023-01-02] MEDS ORDERED: ROSU40TA4 PO (13:31)
[2023-01-02] MEDS ORDERED: JARD1TAB PO (13:31)
[2023-01-02] MEDS ORDERED: TAMS1CAP17 PO (13:31)
[2023-01-02] MEDS ORDERED: PANT40TA29 PO (13:31)
[2023-01-02] MEDS ORDERED: LISI20TA33 PO (13:31)
[2023-01-02] MEDS ORDERED: ADVA230A INH (13:31)
[2023-01-02] MEDS ORDERED: AMLO1TAB25 PO (13:31)
[2023-01-02] MEDS ORDERED: CLOP75TA2 PO (13:31)
[2023-01-02] MEDS ORDERED: ACET-683 PO (13:35)
[2023-01-02] MEDS ORDERED: HOME MED LIST COMPLETE! XX SCH (13:35)
[2023-01-02] MEDS ORDERED: ACETAMINOPHEN 500 MG TAB PO PRN (13:50)
[2023-01-02] MEDS: FUROSEMIDE 40 MG TAB PO SCH (14:53)
[2023-01-02] MEDS: CLOPIDOGREL 75 MG TAB PO SCH (14:53)
[2023-01-02] MEDS: atenoloL 25 MG TAB PO SCH (14:53)
[2023-01-02] MEDS: TAMSULOSIN 0.4 MG CAP PO SCH (14:54)
[2023-01-02] MEDS: PANTOPRAZOLE 40MG TAB (PROTONIX) PO SCH (14:54)
[2023-01-02] MEDS: ROSUVASTATIN 10 MG TAB (CRESTOR) PO SCH (14:54)
[2023-01-02] MEDS: ADVAIR HFA 230/21MCG INHALER INH SCH (18:57)
[2023-01-02 19:15] LABS: RSV AMPLIFICATION NEGATIVE (NEGATIVE)
[2023-01-03 05:54] LABS: HEMOGLOBIN A1c 7.9 % (4.0-6.0)
[2023-01-03 05:57] LABS: HEMATOCRIT 43.5 % (42.0-52.0); HEMOGLOBIN 14.5 g/dl (13.5-17.5); MEAN CORPUSCULAR HEMOGLOBIN 29.8 pg (27.0-33.0); MEAN CORPUSCULAR HGB CONC 33.3 g/dl (32.0-36.5); MEAN CORPUSCULAR VOLUME 89.5 fl (80.0-96.0); PLATELET COUNT, AUTOMATED 159 10^3/uL (150-450); RED BLOOD COUNT 4.86 10^6/uL (4.30-6.10); WHITE BLOOD COUNT 6.9 10^3/uL (4.0-10.0)
[2023-01-03 06:12] LABS: ALBUMIN 3.3 G/DL (3.2-5.2); ALKALINE PHOSPHATASE 61 U/L (46-116); ALT/SGPT 22 U/L (7.0-40); AST/SGOT < 8 U/L (<34); BLOOD UREA NITROGEN 26 MG/DL (9-23); CALCIUM LEVEL 8.9 MG/DL (8.3-10.6); CARBON DIOXIDE LEVEL 28 MMOL/L (20-31); CHLORIDE LEVEL 104 MMOL/L (98-107); CHOLESTEROL LEVEL 205 MG/DL (<200); CHOLESTEROL RISK RATIO 6.76 (<5); CREATININE FOR GFR 1.31 MG/DL (0.70-1.30); GLOMERULAR FILTRATION RATE 57.1 (>42); GLUCOSE, FASTING 141 MG/DL (74-106); HDL CHOLESTEROL 30.3 MG/DL (>40); NON-HDL-C 174.7 MG/DL; POTASSIUM SERUM 4.1 MMOL/L (3.5-5.1); SODIUM LEVEL 139 MMOL/L (136-145); TOTAL PROTEIN 6.1 G/DL (5.7-8.2); TRIGLYCERIDES LEVEL 461 MG/DL (<150)
[2023-01-03] MEDS: ADVAIR HFA 230/21MCG INHALER INH SCH (08:00)
[2023-01-03 08:38] VITALS: BP 139/65
[2023-01-03] MEDS: atenoloL 25 MG TAB PO SCH (09:00)
[2023-01-03] MEDS: PANTOPRAZOLE 40MG TAB (PROTONIX) PO SCH (10:40)
[2023-01-03] MEDS: TAMSULOSIN 0.4 MG CAP PO SCH (10:40)
[2023-01-03] MEDS: CLOPIDOGREL 75 MG TAB PO SCH (10:40)
[2023-01-03 10:41] VITALS: BP 145/70
[2023-01-03] MEDS: FUROSEMIDE 40 MG TAB PO SCH (10:41)
[2023-01-03] MEDS: ROSUVASTATIN 10 MG TAB (CRESTOR) PO SCH (10:41)
[2023-01-03] MEDS ORDERED: ECOT81TA5 PO (10:50)
== END 2023-01-03 11:44 | disposition home or self-care (01) | DRG 69 ==
LOC: EDBD 10:35 → M ED 10:35 → M ED INP 14:18 → ENRESERV 01-03 08:13 → M MS4PR 01-03 08:44
PROVIDERS: ADMIT Internal Medicine; ATTEND Internal Medicine
DX: G45.9 Transient cerebral ischemic attack, unspecified (principal); I35.9 Nonrheumatic aortic valve disorder, unspecified; I25.10 Atherosclerotic heart disease of native coronary artery without angina pectoris; I10 Essential (primary) hypertension; G47.33 Obstructive sleep apnea (adult) (pediatric); N40.0 Benign prostatic hyperplasia without lower urinary tract symptoms; F17.290 Nicotine dependence, other tobacco product, uncomplicated; R27.0 Ataxia, unspecified; Z79.899 Other long term (current) drug therapy; Z20.822 Contact with and (suspected) exposure to COVID-19; Z95.5 Presence of coronary angioplasty implant and graft; Z95.2 Presence of prosthetic heart valve